=== PATIENT | female | born 1950 | race Caucasian/White ===

== ENCOUNTER 2017-08-29 11:26 | Outpatient (CLI) | payer MEDICARE, OTHER ==
--- NOTE | 2017-08-29 14:16 | MRI ---
MRI OF THE LEFT KNEE WITHOUT CONTRAST: Date: 08/29/17 INDICATION; Left knee pain for a long period of time. COMPARISON: None. FINDINGS: There is moderate joint effusion. There is a lobulated semimembranosis-medial gastrocnemius popliteal cyst. There is a complex radial tear involving the posterior horn and posterior root of the medial meniscus with partially medial extrusion. There is mild diffuse osteoarthrosis involving the knee joint predominantly affecting the lateral pat ellofemoral and medial femorotibial joint compartment. There is likely a full thickness defect involv ing the superior aspect of the lateral patellar facet measuring approximately 8.0 mm associated with a subchondral cyst. The lateral meniscus is intact. The ACL, PCL, MCL, LCLC, and extensor mechanism are intact. IT band a nd popliteus appear within normal limits. IMPRESSION: 1. Mild osteoarthrosis of the left knee. 2. Complex degenerative tear of the posterior horn and posterior root of the medial meniscus. POS: [facility]
== END 2017-08-29 11:27 | disposition home or self-care (01) ==
LOC: MRI 11:26
PROVIDERS: ATTEND Orthopaedic Surgery
DX: M17.12 Unilateral primary osteoarthritis, left knee (principal); M23.222 Derangement of posterior horn of medial meniscus due to old tear or injury, left knee

== ENCOUNTER 2018-07-22 09:36 | Outpatient (CLI) | payer MEDICARE, OTHER | END 2018-07-22 09:37 | disposition home or self-care (01) | LOC: BICMAMMO 09:36 | PROVIDERS: ATTEND Family Medicine | DX: Z12.31 Encounter for screening mammogram for malignant neoplasm of breast (principal) | CPT/HCPCS: 77063; 77067 ==

== ENCOUNTER 2019-08-26 10:49 | Outpatient (CLI) | payer MEDICARE, OTHER ==
--- NOTE | 2019-08-26 11:26 | MMO ---
Bilateral MAMMO Bilat Screen [facility]. CLINICAL HISTORY: Patient is 69 years old and is seen for screening. The patient has no family history of breast cancer. The patient has no personal history of cancer. VIEWS: The views performed were: bilateral craniocaudal with tomosynthesis and bilateral mediolateral oblique with tomosynthesis. FILMS COMPARED: The present examination has been compared to prior imaging studies performed at [facility] [place] on 06/11/2016, 06/27/2016 and 07/05/2017, and at [facility] on 07/22/2018. This study has been interpreted with the assistance of computer-aided detection. MAMMOGRAM FINDINGS: There are scattered fibroglandular densities. There are stable benign appearing calcifications seen in both breasts. There are no suspicious masses, suspicious calcifications, or new areas of architectural distortion. IMPRESSION: THERE IS NO MAMMOGRAPHIC EVIDENCE OF MALIGNANCY. A ROUTINE FOLLOW-UP MAMMOGRAM IN 1 YEAR IS RECOMMENDED. THE RESULTS OF THIS EXAM WERE SENT TO THE PATIENT. ACR BI-RADS Category 2 - Benign finding MAMMOGRAPHY NOTE: 1. A negative mammogram report should not delay a biopsy if a dominant of clinically suspicious mass is present. 2. Approximately 10% to 15% of breast cancers are not detected by mammography. 3. Adenosis and dense breasts may obscure an underlying neoplasm. Reported by: FABRICIO RIDDLE MD Electonically Signed: [id number]
== END 2019-08-26 10:50 | disposition home or self-care (01) ==
LOC: BICMAMMO 10:49
PROVIDERS: ATTEND Family Medicine
DX: Z12.31 Encounter for screening mammogram for malignant neoplasm of breast (principal)
CPT/HCPCS: 77063; 77067

== ENCOUNTER 2020-03-09 11:54 | Outpatient (CLI) | payer MEDICARE, OTHER | END 2020-03-09 11:55 | disposition home or self-care (01) | LOC: CTENTCT 11:54 | PROVIDERS: ATTEND Otolaryngology Plastic Surgery within the Head & Neck | DX: J32.9 Chronic sinusitis, unspecified (principal) | CPT/HCPCS: 70486 ==

== ENCOUNTER 2020-09-13 15:01 | Outpatient (CLI) | payer MEDICARE, OTHER ==
--- NOTE | 2020-09-13 15:53 | MMO ---
Bilateral MAMMO Bilat Screen [facility]. CLINICAL HISTORY: Patient is 70 years old and is seen for screening. The patient has no family history of breast cancer. The patient has no personal history of cancer. VIEWS: The views performed were: bilateral craniocaudal with tomosynthesis and bilateral mediolateral oblique with tomosynthesis. FILMS COMPARED: The present examination has been compared to prior imaging studies performed at [facility] [place] on 06/27/2016 and 07/05/2017, and at [facility] on 07/22/2018 and 08/26/2019. This study has been interpreted with the assistance of computer-aided detection. MAMMOGRAM FINDINGS: There are scattered fibroglandular densities. Benign calcifications are noted bilaterally. There are no suspicious masses, suspicious calcifications, or new areas of architectural distortion. IMPRESSION: THERE IS NO MAMMOGRAPHIC EVIDENCE OF MALIGNANCY. A ROUTINE FOLLOW-UP MAMMOGRAM IN 1 YEAR IS RECOMMENDED. THE RESULTS OF THIS EXAM WERE SENT TO THE PATIENT. ACR BI-RADS Category 2 - Benign finding MAMMOGRAPHY NOTE: 1. A negative mammogram report should not delay a biopsy if a dominant of clinically suspicious mass is present. 2. Approximately 10% to 15% of breast cancers are not detected by mammography. 3. Adenosis and dense breasts may obscure an underlying neoplasm. Reported by: EM JHA MD Electonically Signed: [id number]
== END 2020-09-13 15:02 | disposition home or self-care (01) ==
LOC: BICMAMMO 15:01
PROVIDERS: ATTEND Family Medicine
DX: Z12.31 Encounter for screening mammogram for malignant neoplasm of breast (principal)
CPT/HCPCS: 77063; 77067

== ENCOUNTER 2022-12-14 13:02 | Outpatient (CLI) | payer MEDICARE, OTHER | END 2022-12-14 13:03 | disposition home or self-care (01) | LOC: BICMAMMO 13:02 | PROVIDERS: ATTEND Family Medicine | DX: N64.89 Other specified disorders of breast (principal) | CPT/HCPCS: 77065; G0279 ==

== ENCOUNTER 2024-07-10 10:43 | Outpatient (CLI) | payer MEDICARE, OTHER | END 2024-07-10 10:44 | disposition home or self-care (01) | LOC: BICMAMMO 10:43 | PROVIDERS: ATTEND Nurse Practitioner Family | DX: Z12.31 Encounter for screening mammogram for malignant neoplasm of breast (principal) | CPT/HCPCS: 77063; 77067 ==

== ENCOUNTER 2024-10-14 10:36 | Outpatient (CLI) | payer MEDICARE, OTHER ==
[2024-10-14 11:48] LABS: #Basophils 0.08 10x3/uL (0.0-0.2); %Basophils 0.8 % (0.0-1.0); %Eosinophils 2.7 % (0.0-10.0); %Lymphocytes 25.9 % (21.0-51.0); %Monocytes 7.4 % (0.0-10.0); %Neutrophils 62.8 % (42.0-75.0); Hemoglobin 12.7 g/dL (12.0-16.0); Mean Corpuscular HGB CONC 34.3 g/dL (32.0-36.0); Mean Corpuscular Hemoglobin 30.3 pg (27.0-31.0); Mean Corpuscular Volume 88.3 fL (78.0-98.0); Mean Platelet Volume 9.5 fL (7.4-10.4); Platelet Count 292 10x3/uL (130-400); Red Blood Cell (RBC) Count 4.19 mill/uL (4.20-5.40)
[2024-10-14 12:01] LABS: Prothrombin Time 13.5 sec (12.0-14.7)
[2024-10-14 12:22] LABS: Anion Gap 14 mmol/L (10-20); BUN (Urea Nitrogen) 24 mg/dL (9.8-20.1); Calc. Creatinine Clearance 0 mL/min (70-130); Calcium 9.8 mg/dL (7.8-10.44); Carbon Dioxide 24 mmol/L (23-31); Chloride 105 mmol/L (98-107); Estimated GFR 53; Glucose 86 mg/dL (83-110); Potassium 4.6 mmol/L (3.5-5.1); Sodium 138 mmol/L (136-145)
[2024-10-14 13:34] LABS: Bilirubin Negative (Negative); Blood, Urine Negative (Negative); Clarity Clear (Clear); Glucose, Urine (Dipstick) Normal (Negative); Ketone, Urine Negative (Negative); Leukocyte 250 Leu/uL (Negative); Nitrite Negative (Negative); Protein, Urine (Dipstick) Negative (Neg-Trace); Specific Gravity, Urine 1.012 (1.002-1.036); Urobilinogen Normal mg/dL (Less than 2); pH, Urine 5.5 (5.0-9.0)
== END 2024-10-14 10:37 | disposition home or self-care (01) ==
LOC: LABBT 10:36
PROVIDERS: ATTEND Orthopaedic Surgery
DX: Z01.818 Encounter for other preprocedural examination (principal); M17.11 Unilateral primary osteoarthritis, right knee
CPT/HCPCS: 71046; 80048; 81003; 85025; 85610; 87081; 93005; 93010

== ENCOUNTER 2024-10-14 11:33 | Outpatient (CLI) | payer MEDICARE, OTHER | END 2024-10-14 11:34 | disposition home or self-care (01) | LOC: CT 11:33 | PROVIDERS: ATTEND Orthopaedic Surgery | DX: M17.11 Unilateral primary osteoarthritis, right knee (principal); M16.0 Bilateral primary osteoarthritis of hip; M25.461 Effusion, right knee ==

== ENCOUNTER 2024-10-20 06:24 | Observation (INO) | payer MEDICARE, OTHER ==
[2024-10-20] MEDS ORDERED: EPINEPHrine 1 MG/ML VIAL ONE (06:30)
[2024-10-20] MEDS ORDERED: Bupivacaine 0.25% HCL 30 ML VIAL ONE (06:30)
[2024-10-20] MEDS ORDERED: Tranexamic Acid 1,000 MG/10 ML VIAL ONE (07:46)
[2024-10-20] MEDS ORDERED: Sodium Chloride 0.9% 100 ML ONE (07:46)
[2024-10-20] MEDS ORDERED: CEFAZOLIN 2 GM VIAL ONE (07:46)
[2024-10-20] MEDS ORDERED: Sevoflurane 250 ML INH ANEST BOTTLE ONE (07:49)
[2024-10-20] MEDS ORDERED: Vancomycin (BATCH) 2 GM in Premix 1 BAG IVPB SCH (08:00)
[2024-10-20] MEDS ORDERED: methylPREDNISolone Acetate 40 mg/ml Vial ONE (08:00)
[2024-10-20] MEDS ORDERED: Lidocaine 1% (PF) 30 ML VIAL ONE (08:02)
[2024-10-20] MEDS ORDERED: Ropivacaine 0.5% HCl/PF (150 MG/30 ML VIAL) ONE (08:13)
[2024-10-20] MEDS ORDERED: Midazolam HCl 2 mg/2 ml Vial ONE (08:13)
[2024-10-20] MEDS ORDERED: fentaNYL 50 mcg/mL 1 mL Vial ONE ×4 (08:13→11:40)
[2024-10-20] MEDS ORDERED: PROPOFOL 20 ML ONE (08:20)
[2024-10-20] MEDS ORDERED: Lidocaine 1% PF 5 ML VIAL ONE (08:20)
[2024-10-20] MEDS ORDERED: PHENYLEPHRINE-NS 100 MCG/ML 10 ML SYRINGE ONE (09:12)
[2024-10-20] MEDS ORDERED: Zolpidem Tartrate 5 MG TAB PO PRN ×2 (09:15→10:30)
[2024-10-20] MEDS ORDERED: Promethazine HCl 25 MG/ML VIAL IM PRN ×2 (09:15→10:30)
[2024-10-20] MEDS ORDERED: Ropivacaine 0.2% 550 ML 550 ML NERVE BLCK SCH (09:15)
[2024-10-20] MEDS ORDERED: traMADol HCl 50 MG TAB PO PRN ×2 (09:15)
[2024-10-20] MEDS ORDERED: Dexamethasone 4 mg/ml Vial ONE (09:29)
[2024-10-20] MEDS ORDERED: Ondansetron PF 4 MG/2 ML Vial ONE (09:29)
[2024-10-20] MEDS ORDERED: Acetaminophen 325 MG TAB PO PRN (10:30)
[2024-10-20] MEDS ORDERED: diphenhydrAMINE 25 MG CAP PO PRN (10:30)
[2024-10-20] MEDS ORDERED: Ondansetron PF 4 MG/2 ML Vial IVP PRN (10:30)
[2024-10-20] MEDS ORDERED: Tranexamic Acid 1,000 MG in Sodium Chloride 0.9% 100 ML IVPB SCH (10:30)
[2024-10-20] MEDS ORDERED: Ketorolac Tromethamine 30 MG (1 mL) VIAL ONE (10:36)
[2024-10-20] MEDS: fentaNYL 50 mcg/mL 1 mL Vial SLOW IVP PRN (12:39)
[2024-10-20] MEDS: HYDROcodone/Acetaminophen 10/325 mg Tablet PO PRN (12:54)
[2024-10-20] MEDS: Ondansetron PF 4 MG/2 ML Vial IVP PRN (13:01)
[2024-10-20 13:04] VITALS: BMI 34.9
[2024-10-20] MEDS: Sodium Chloride 0.9% 1,000 ML IV SCH (18:14)
[2024-10-20] MEDS: CEFAZOLIN 2 GM in Sodium Chloride 0.9% 100 ML IVPB SCH (18:15)
[2024-10-20] MEDS: Ketorolac Tromethamine 30 MG (1 mL) VIAL IVP SCH ×2 (18:15→19:54)
[2024-10-20] MEDS: Vancomycin 1.5 GRAM/300 ML BAG 1.5 GM in Premix 1 BAG IVPB SCH (18:16)
[2024-10-20] MEDS: Aspirin 81 mg Enteric Coated Tablet PO SCH (20:07)
[2024-10-20] MEDS: Ferrous Gluconate 324 MG TAB PO SCH (20:07)
[2024-10-20] MEDS: Losartan 25 MG TAB PO SCH (20:07)
[2024-10-20] MEDS: Fluticasone Propionate Nasal Spray 16 gm Bottle NASAL SCH (20:08)
[2024-10-20] MEDS: Azelastine 137 MCG/NASAL Spray 30 ML NS SCH (20:09)
[2024-10-20] MEDS: Senokot S 8.6-50 MG TAB PO SCH (20:10)
[2024-10-20] MEDS ORDERED: Azelastine 137 MCG/NASAL Spray 30 ML NS SCH (21:00)
[2024-10-20] MEDS ORDERED: Non-Formulary Item 1 EACH (Fluticasone Propionate [Flonase Allergy Relief] 9.9 ML Bottle) EA NARE SCH (21:00)
[2024-10-20] MEDS ORDERED: Non-Formulary Item 1 EACH (Losartan Potassium [Losartan Potassium] 100 MG Tablet) PO SCH (21:00)
[2024-10-21 05:54] LABS: Hemoglobin 10.4 g/dL (12.0-16.0); Mean Corpuscular HGB CONC 33.5 g/dL (32.0-36.0); Mean Corpuscular Hemoglobin 30.3 pg (27.0-31.0); Mean Corpuscular Volume 90.4 fL (78.0-98.0); Mean Platelet Volume 9.5 fL (7.4-10.4); Platelet Count 253 10x3/uL (130-400); RBC Distribution Width 12.1 % (11.5-14.5); Red Blood Cell (RBC) Count 3.43 mill/uL (4.20-5.40)
[2024-10-21] MEDS ORDERED: Non-Formulary Item 1 EACH (Hydrochlorothiazide [Hydrochlorothiazide] 12.5 MG Capsule) PO SCH (09:00)
[2024-10-21] MEDS ORDERED: NEBIVOLOL HCL 10 MG PO SCH (09:00)
[2024-10-21] MEDS: HYDROcodone/Acetaminophen 10/325 mg Tablet PO PRN (09:35)
[2024-10-21] MEDS: Nebivolol HCl 5 MG TAB PO SCH (09:37)
[2024-10-21] MEDS: Multivitamin W/ Minerals 1 TAB PO SCH (09:37)
[2024-10-21] MEDS: Levothyroxine 175 MCG TAB PO SCH (09:37)
[2024-10-21] MEDS: Amlodipine 5 MG TAB PO SCH (09:37)
[2024-10-21] MEDS: Hydrochlorothiazide 25 MG TAB PO SCH (09:38)
[2024-10-21] MEDS: Sertraline 25 MG TAB PO SCH (09:39)
[2024-10-21 11:37] VITALS: TEMP 98.3
[2024-10-21 15:53] VITALS: BP 126/61
== END 2024-10-21 16:06 | disposition home or self-care (01) ==
LOC: SDC 06:24 → SURG A 11:00 → SDC 11:00 → SURG A 12:14
PROVIDERS: ADMIT Orthopaedic Surgery; ATTEND Orthopaedic Surgery
PROC: 0SRC0JZ Replacement of Right Knee Joint with Synthetic Substitute, Open Approach (ICD-10-PCS; principal; 2024-10-20)
PROC: 0S9D3ZZ Drainage of Left Knee Joint, Percutaneous Approach (ICD-10-PCS; 2024-10-20)
PROC: 3E0T3BZ Introduction of Anesthetic Agent into Peripheral Nerves and Plexi, Percutaneous Approach (ICD-10-PCS; 2024-10-20)
DX: M17.0 Bilateral primary osteoarthritis of knee (principal); I10 Essential (primary) hypertension; E03.9 Hypothyroidism, unspecified; F41.9 Anxiety disorder, unspecified; Z98.51 Tubal ligation status; Z90.49 Acquired absence of other specified parts of digestive tract; Z88.2 Allergy status to sulfonamides; Z79.890 Hormone replacement therapy; Z79.899 Other long term (current) drug therapy
CPT/HCPCS: 0055T; 20610; 27447; 64448; 36415; 85027; A4306; C1713; C1776; C1889; J0171; J0665; J1010; J1100; J1885; J2250; J2405; J2704; J2795; J3010; J3370; J7030

== ENCOUNTER 2025-09-03 14:29 | Outpatient (CLI) | payer MEDICARE, OTHER | END 2025-09-03 14:30 | disposition home or self-care (01) | LOC: BICMAMMO 14:29 | PROVIDERS: ATTEND Nurse Practitioner Family | DX: Z12.31 Encounter for screening mammogram for malignant neoplasm of breast (principal) | CPT/HCPCS: 77063; 77067 ==